=== PATIENT | female | born 1985 | race Hispanic/Latino ===

== ENCOUNTER 2017-07-21 14:40 | Emergency (ER) | payer OTHER ==
[~2017-07-21] VITALS: Ht 157.5 cm; Wt 70.3 kg
[~2017-07-21 14:40] MED LIST: METOPROLOL SUCC25 MG PO; PRENATAL VITAM1 EAC3 PO; PROVENTIL HFA6.7 GM INH
== END 2017-07-21 15:17 | disposition home or self-care (01) ==
LOC: ED 14:40
DX: M25.571 Pain in right ankle and joints of right foot (principal); W10.9XXA Fall (on) (from) unspecified stairs and steps, initial encounter

== ENCOUNTER 2018-03-13 02:28 | Emergency (ER) | payer OTHER ==
[~2018-03-13] VITALS: Ht 157.5 cm; Wt 70.3 kg
== END 2018-03-13 11:27 | disposition home or self-care (01) ==
LOC: ED 02:28
DX: F10.229 Alcohol dependence with intoxication, unspecified (principal); Y90.8 Blood alcohol level of 240 mg/100 ml or more
CPT/HCPCS: 80053; 80176; 81001; 84703; 85025; 99284; G0480; J7030